=== PATIENT | female | born 1950 | race Caucasian/White ===

== ENCOUNTER 2016-04-22 16:34 | Emergency (ER) | payer BC ==
--- NOTE | 2016-04-22 17:07 | ED ---
General Adult HPI - General Chief complaint: Wound/Laceration Stated complaint: Hand Laceration Time Seen by Provider: 04/22/16 16:59 Source: patient, family, RN notes reviewed Mode of arrival: ambulatory Limitations: no limitations - History of Present Illness Initial comments: 65-year-old female presenting for left hand laceration. Patient states within the past hour she tripped and fell and landed on a plate which shattered under her hand. She sustained several lacerations to her left hand because of this. She also states that she fell on her right wrist during this and she is now having some pain in her right wrist. She states that her tetanus shot is up-to- date within the past 2 years. She denies any other injury. She denies any head injury. She does state that she takes Plavix, however her bleeding has resolved spontaneously. She denies any other blood thinners. She has no other complaints at this time. - Related Data Home Medications Medication Instructions Recorded Confirmed ALPRAZolam [Xanax] 0.125 mg PO DAILY PRN 04/22/16 04/22/16 Acetaminophen [Tylenol Arthritis] 650 mg PO BID 04/22/16 04/22/16 Aspirin 81 mg PO DAILY 04/22/16 04/22/16 Bisoprolol-Hctz 5-6.25 mg [Ziac 1 tab PO DAILY 04/22/16 04/22/16 5-6.25] Cholecalciferol [Vitamin D3] 1,000 unit PO DAILY 04/22/16 04/22/16 Clopidogrel [Plavix] 75 mg PO DAILY 04/22/16 04/22/16 Desloratadine [Clarinex] 5 mg PO DAILY 04/22/16 04/22/16 Gabapentin [Neurontin] 300 mg PO HS 04/22/16 04/22/16 Glimepiride [Amaryl] 4 mg PO AC-BRKFST 04/22/16 04/22/16 L.acidoph,Paracasei, B.lactis 1 cap PO DAILY 04/22/16 04/22/16 [Probiotic] Lovastatin [Mevacor] 40 mg PO HS 04/22/16 04/22/16 Omeprazole 20 mg PO DAILY 04/22/16 04/22/16 Soy Isofla/Blk Cohosh/Mag Bark 155 mg PO DAILY 04/22/16 04/22/16 [Estroven 155 mg Capsule] metFORMIN HCL 1,000 mg PO BID 04/22/16 04/22/16 Allergies Allergy/AdvReac Type Severity Reaction Status Date / Time latex Allergy Rash/Hives Verified 04/22/16 17:20 codeine AdvReac Agitation Verified 04/22/16 17:20 and slight swelling Review of Systems ROS Statement: Those systems with pertinent positive or pertinent negative responses have been documented in the HPI. ROS Other: All systems not noted in ROS Statement are negative. Past Medical History Past Medical History: No Reported History History of Any Multi-Drug Resistant Organisms: None Reported Past Surgical History: Section Past Psychological History: No Psychological Hx Reported Smoking Status: Never smoker Past Alcohol Use History: None Reported Past Drug Use History: None Reported General Exam - General Exam Comments Initial Comments: General: Awake and Alert. No acute distress. Does not appear acutely ill. Obese. Eyes: JOSE, EOM intact. No nystagmus. No scleral icterus. HENT: Atraumatic, normocephalic. Mucous membranes moist. Trachea midline. Neck: The neck is supple, there is no tenderness or JVD. Cardiovascular: Regular rate and rhythm. No murmur, rub, or gallop is appreciated. Distal pulses intact. Digits with brisk cap refill. Respiratory: Lungs are clear to auscultation bilaterally. No wheezes, rales, rhonchi. No respiratory distress. Gastrointestinal: Soft, Nontender. No rebound or guarding. Non-distended. No masses or organomegaly noted. No CVA tenderness. Musculoskeletal: No tenderness. Normal ROM. No gross deformity. No strength deficits. Neurological: A&Ox3. CN II-XII grossly intact, There are no obvious motor or sensory deficits. Coordination appears grossly intact. Speech is normal. Skin: Left hand with 2 4 cm vertical lacerations on the palmar aspect of the hand. Bleeding stopped spontaneously. Otherwise skin is warm and dry and no rashes or lesions are noted. Psychiatric: Cooperative, appropriate mood & affect, normal judgment. Limitations: no limitations Course Vital Signs 04/22/16 16:40 Temperature 97.6 F Pulse Rate 66 Respiratory 20 Rate Blood Pressure 184/86 O2 Sat by Pulse 96 Oximetry Procedures - Laceration Laceration #1 Consent Obtained: verbal consent Time Out Performed: Yes Indication: laceration Site: hand Size (cm): 4 Description: linear Depth: simple, single layer Anesthetic Used: lidocaine 1% Anesthesia Technique: local infiltration Amount (mls): 5 Pre-repair: irrigated extensively Type of Sutures: nylon Size of Sutures: 5-0 Number of Sutures: 8 Technique: simple, interrupted Patient Tolerated Procedure: well, no complications Laceration #2 Consent Obtained: verbal consent Time Out Performed: Yes Indication: laceration Site: hand Size (cm): 4 Description: linear Depth: simple, single layer Anesthetic Used: lidocaine 1% Amount (mls): 5 Pre-repair: irrigated extensively Type of Sutures: nylon Size of Sutures: 5-0 Number of Sutures: 9 Technique: simple, interrupted Patient Tolerated Procedure: well, no complications Medical Decision Making - Medical Decision Making 65-year-old female presenting for lacerations to the left hand after mechanical fall. She landed on a ceramic plate which broke. X-rays imaging was performed which shows no evidence of retained foreign body. She does state that her tetanus is up-to-date. She states she fell on her right wrist which is painful. X-ray imaging of this is without evidence of fracture. She does have full range of motion of this wrist. Sutures were placed to left palm in 2 separate 4 cm lacerations after extensive tap water rrigation and local anesthetic. There does not appear to be any deep tissue or tendon involvement. Lacerations were repaired without complication. Discussed laceration and wound care. Patient doesn't wedding ring on the left fourth digit, however there is no evidence of significant digital swelling at this time. There is not appear to be any laceration close to this area. She is unable to easily remove this at this time, however she is not normally able to easily remove her wedding ring. We discussed and elected not to remove the wedding ring at this time. Her finger appears well perfused and without evidence of ischemia at this time. Discussed concerning signs symptoms for immediate return to the ED. Discussed getting sutures out in about 7 days. Patient is agreeable with plan to discharge home. Disposition Clinical Impression: Laceration of left palm, Fall, Right wrist pain Disposition: HOME SELF-CARE Condition: Stable Instructions: Wrist Injury (ED), Care For Your Stitches (ED) Additional Instructions: Sutures may be removed in about 7 days. Referrals: Cole Andujar MD [Primary Care Provider] - 1-2 days Time of Disposition: 18:49
[2016-04-22] MEDS ORDERED: HYDROcodone/APAP 5-325MG 1 EACH TAB PO STA (17:10)
--- NOTE | 2016-04-22 17:52 | XR ---
EXAMINATION TYPE: XR hand complete LT DATE OF EXAM: 04/22/2016 5:31 PM COMPARISON: NONE HISTORY: Wrist pain TECHNIQUE: 3 views FINDINGS: I see no fracture nor dislocation. Metacarpals are intact. There are no erosions. IMPRESSION: No acute abnormality of the left hand.
--- NOTE | 2016-04-22 17:53 | XR ---
EXAMINATION TYPE: XR wrist complete RT DATE OF EXAM: 04/22/2016 5:31 PM COMPARISON: NONE HISTORY: Wrist pain and hand pain TECHNIQUE: 4 views FINDINGS: I see no fracture nor dislocation. Carpal bones are intact. There are no erosions. IMPRESSION: Negative right hand exam. No sign of a foreign body.
[2016-04-22 18:57] VITALS: BP 170/74; PULSE 61; RESP 18; TEMP 97.8
== END 2016-04-22 18:58 | disposition home or self-care (01) ==
LOC: EC 16:34
DX: S61.412A Laceration without foreign body of left hand, initial encounter (principal); M25.531 Pain in right wrist; W01.118A Fall on same level from slipping, tripping and stumbling with subsequent striking against other sharp object, initial encounter; Z79.02 Long term (current) use of antithrombotics/antiplatelets; Z79.899 Other long term (current) drug therapy; Z79.82 Long term (current) use of aspirin; Z91.040 Latex allergy status; Z88.5 Allergy status to narcotic agent; Z79.84 Long term (current) use of oral hypoglycemic drugs
CPT/HCPCS: 12004; 99283

== ENCOUNTER → 2021-09-03 | Outpatient (CLI) | payer MEDICARE ==
[2021-09-03 15:55] LABS: Basophils % (A) 1 %; Eosinophils # (A) 0.2 k/uL (0-0.7); Eosinophils % (A) 3 %; HCT 41.3 % (34.0-46.0); HGB 13.8 gm/dL (11.4-16.0); Lymphocytes # (A) 1.5 k/uL (1.0-4.8); Lymphocytes % (A) 22 %; MCH 29.9 pg (25.0-35.0); MCHC 33.4 g/dL (31.0-37.0); MCV 89.6 fL (80.0-100.0); Mean Platelet Volume 8.2; Monocytes # (A) 0.3 k/uL (0-1.0); Monocytes % (A) 5 %; Neutrophils # (A) 4.6 k/uL (1.3-7.7); Neutrophils % (A) 69 %; Platelet Count 161 k/uL (150-450); RBC 4.62 m/uL (3.80-5.40); RDW 12.8 % (11.5-15.5); WBC 6.7 k/uL (3.8-10.6)
[2021-09-03 16:06] LABS: Ionized Calcium 5.3 mg/dL (4.5-5.3)
[2021-09-03 23:37] LABS: Protein, Total 6.4 g/dL (6.2-8.2)
[2021-09-04 00:43] LABS: Calcium 10.5 mg/dL (8.7-10.3)
== END | disposition home or self-care (01) ==
LOC: LABWHC1 14:39
PROVIDERS: ATTEND Internal Medicine
DX: E83.52 Hypercalcemia (principal)
CPT/HCPCS: 36415; 82306; 82310; 82330; 82652; 83970; 84165; 85025

== ENCOUNTER → 2022-05-30 | Outpatient (CLI) | payer MEDICARE ==
[2022-05-30 13:57] LABS: Ionized Calcium 5.4 mg/dL (4.5-5.3)
[2022-05-30 14:24] LABS: ALT 18 U/L (4-34); AST 23 U/L (14-36); African American GFR (CKD) >90 (>60 ml/min/1.73 sqM); Albumin 4.2 g/dL (3.5-5.0); Albumin/Globulin Ratio 1.7; Alkaline Phosphatase 71 U/L (38-126); Anion Gap 8 mmol/L; Blood Urea Nitrogen 8 mg/dL (7-17); Calcium 10.1 mg/dL (8.4-10.2); Carbon Dioxide 31 mmol/L (22-30); Chloride 100 mmol/L (98-107); Globulin 2.5 g/dL; Glucose 175 mg/dL (74-99); Non-African American GFR(CKD) >90 (>60 ml/min/1.73 sqM); Potassium 3.9 mmol/L (3.5-5.1); Sodium 139 mmol/L (137-145); Total Bilirubin 0.6 mg/dL (0.2-1.3); Total Protein 6.7 g/dL (6.3-8.2)
[2022-05-30 21:23] LABS: Basophils # (A) 0.04 X 10*3/uL (0.00-0.10); Basophils % (A) 0.6 %; Eosinophils # (A) 0.18 X 10*3/uL (0.04-0.35); Eosinophils % (A) 2.6 %; HCT 43.9 % (37.2-46.3); HGB 14.2 g/dL (12.0-15.0); Immature Grans, Automated 0.3 %; Lymphocytes # (A) 1.82 X 10*3/uL (0.90-5.00); MCH 29.1 pg (27.0-32.0); MCHC 32.3 g/dL (32.0-37.0); Mean Platelet Volume 10.8 fL (9.5-12.2); Monocytes # (A) 0.47 X 10*3/uL (0.20-1.00); Monocytes % (A) 6.7 %; NRBC Per 100 WBC 0 /100 WBCS (0.0-0.0); Neutrophils # (A) 4.47 X 10*3/uL (1.80-7.70); Neutrophils % (A) 63.8 %; Platelet Count 168 X 10*3/uL (140-440); RBC 4.88 X 10*6/uL (4.10-5.20); RDW 12.3 % (11.5-14.5)
[2022-05-30 22:38] LABS: Chol/HDL Ratio 4.62 Ratio; LDL Cholesterol,Calculated 101.1 mg/dL (0.0-131.0)
== END | disposition home or self-care (01) ==
LOC: LABWHC1 12:21
PROVIDERS: ATTEND Internal Medicine
DX: E11.65 Type 2 diabetes mellitus with hyperglycemia (principal)
CPT/HCPCS: 36415; 80053; 80061; 82330; 82607; 82746; 83970; 84100; 84443; 85025

== ENCOUNTER 2023-08-16 21:08 | Emergency (ER) | payer MEDICARE ==
--- NOTE | 2023-08-16 22:20 | ED ---
Psych HPI - General Source: patient, EMS, RN notes reviewed Mode of arrival: EMS <Elvira Carnes - Last Filed: 08/16/23 22:19> <Thien Kaur - Last Filed: 08/17/23 06:52> - General Chief Complaint: Psychiatric Symptoms Stated Complaint: mental health Time Seen by Provider: 08/16/23 21:20 - History of Present Illness Initial Comments: Quick Note-this is a 72-year-old female presents emergency department via EMS from [facility] for chief complaint of suicidal ideation. It was reported that patient was messaging her family members stating that she has been having suicidal ideations. Currently patient is denying suicidal ideations or homicidal ideations. (Elvira Carnes) 72 female to the ER for evaluation of suicidal ideation under petition (Thien Kaur) - Related Data Home Medications Medication Instructions Recorded Confirmed ALPRAZolam [Xanax] 0.125 mg PO DAILY PRN 04/22/16 04/22/16 Acetaminophen [Tylenol Arthritis] 650 mg PO BID 04/22/16 04/22/16 Aspirin 81 mg PO DAILY 04/22/16 04/22/16 Bisoprolol-Hctz 5-6.25 mg [Ziac 1 tab PO DAILY 04/22/16 04/22/16 5-6.25] Cholecalciferol [Vitamin D3] 1,000 unit PO DAILY 04/22/16 04/22/16 Clopidogrel [Plavix] 75 mg PO DAILY 04/22/16 04/22/16 Desloratadine [Clarinex] 5 mg PO DAILY 04/22/16 04/22/16 Gabapentin [Neurontin] 300 mg PO HS 04/22/16 04/22/16 Glimepiride [Amaryl] 4 mg PO AC-BRKFST 04/22/16 04/22/16 L.acidoph,Paracasei, B.lactis 1 cap PO DAILY 04/22/16 04/22/16 [Probiotic] Lovastatin [Mevacor] 40 mg PO HS 04/22/16 04/22/16 Omeprazole 20 mg PO DAILY 04/22/16 04/22/16 Soy Isofla/Blk Cohosh/Mag Bark 155 mg PO DAILY 02/27/17 02/27/17 [Estroven 155 mg Capsule] metFORMIN HCL [Glucophage] 1,000 mg PO BID 04/22/16 04/22/16 Allergies Allergy/AdvReac Type Severity Reaction Status Date / Time latex Allergy Rash/Hives Verified 08/16/23 21:16 codeine AdvReac Agitation Verified 08/16/23 21:16 and slight swelling Review of Systems ROS Other: All systems not noted in ROS Statement are negative. <Elvira Carnes - Last Filed: 08/16/23 22:19> ROS Other: All systems not noted in ROS Statement are negative. <Thien Kaur - Last Filed: 08/17/23 06:52> ROS Statement: Those systems with pertinent positive or pertinent negative responses have been documented in the HPI. Past Medical History Past Medical History: Diabetes Mellitus History of Any Multi-Drug Resistant Organisms: None Reported Past Surgical History: Section Past Psychological History: No Psychological Hx Reported Smoking Status: Current every day smoker Past Alcohol Use History: None Reported Past Drug Use History: None Reported <Elvira Carnes - Last Filed: 08/16/23 22:19> General Exam Limitations: no limitations <Elvira Carnes - Last Filed: 08/16/23 22:19> - General Exam Comments Initial Comments: Visual Physical Exam Vital signs reviewed General: Well-appearing, nontoxic, no acute distress. Head: Normocephalic, atraumatic Eyes: PERRLA, EOMI ENT: Airway patent Chest: Nonlabored breathing Skin: No visual rash, normal skin tone Neuro: Alert and oriented 3 Musculoskeletal: No gross abnormalities (Elvira Carnes) Course <Thien Kaur - Last Filed: 08/17/23 06:52> Vital Signs 08/16/23 08/17/23 08/17/23 21:14 00:49 02:00 Temperature 97.7 F Pulse Rate 62 53 L 67 Respiratory 18 18 16 Rate Blood Pressure 141/71 133/68 148/84 O2 Sat by Pulse 99 97 94 L Oximetry - Reevaluation(s) Reevaluation #1: 08/17/23 03:52 Medical records reviewed Medically clear for psychiatric evaluation (Thien Kaur) Medical Decision Making <Elvira Carnes - Last Filed: 08/16/23 22:19> - Lab Data Result diagrams: 08/16/23 21:51 08/16/23 21:51 <Thien Kaur - Last Filed: 08/17/23 06:52> - Medical Decision Making I completed the quick note portion of this chart signed Elvira Carnes PA-C (Elvira Carnes) 72 female seen eval by psychiatry patient will be admitted for psychiatric evaluation and treatment geriatric psychiatry (Thien Kaur) - Lab Data Lab Results 08/16/23 08/16/23 08/16/23 Range/Units 21:51 21:51 21:51 WBC 8.0 (3.8-10.6) k/uL RBC 4.46 (3.80-5.40) m/uL Hgb 13.3 (11.4-16.0) gm/dL Hct 41.0 (34.0-46.0) % MCV 91.8 (80.0-100.0) fL MCH 29.9 (25.0-35.0) pg MCHC 32.6 (31.0-37.0) g/dL RDW 13.0 (11.5-15.5) % Plt Count 200 (150-450) k/uL MPV 8.5 Neutrophils % 56 % Lymphocytes % 33 % Monocytes % 5 % Eosinophils % 4 % Basophils % 0 % Neutrophils # 4.5 (1.3-7.7) k/uL Lymphocytes # 2.6 (1.0-4.8) k/uL Monocytes # 0.4 (0-1.0) k/uL Eosinophils # 0.3 (0-0.7) k/uL Basophils # 0.0 (0-0.2) k/uL Sodium 138 (137-145) mmol/L Potassium 4.2 (3.5-5.1) mmol/L Chloride 109 H (98-107) mmol/L Carbon Dioxide 21 L (22-30) mmol/L Anion Gap 8 mmol/L BUN 17 (7-17) mg/dL Creatinine 0.57 (0.52-1.04) mg/dL Est GFR (CKD-EPI)AfAm >90 (>60 ml/min/1.73 sqM) Est GFR (CKD-EPI)NonAf >90 (>60 ml/min/1.73 sqM) Glucose 184 H (74-99) mg/dL Calcium 10.5 H (8.4-10.2) mg/dL Phosphorus 3.4 (2.5-4.5) mg/dL Magnesium 1.8 (1.6-2.3) mg/dL Total Bilirubin 0.5 (0.2-1.3) mg/dL AST 30 (14-36) U/L ALT 30 (4-34) U/L Alkaline Phosphatase 116 (38-126) U/L Total Protein 6.4 (6.3-8.2) g/dL Albumin 4.2 (3.5-5.0) g/dL Urine Color Colorless Urine Appearance Cloudy H (Clear) Urine pH 5.5 (5.0-8.0) Ur Specific [place] 1.019 (1.001-1.035) Urine Protein Negative (Negative) Urine Glucose (UA) 1+ H (Negative) Urine Ketones Negative (Negative) Urine Blood Large H (Negative) Urine Nitrite Negative (Negative) Urine Bilirubin Negative (Negative) Urine Urobilinogen <2.0 (<2.0) mg/dL Ur Leukocyte Esterase Large H (Negative) Urine RBC 126 H (0-5) /hpf Urine WBC 131 H (0-5) /hpf Ur Squamous Epith Cells 28 H (0-4) /hpf Urine Bacteria Rare H (None) /hpf Hyaline Casts 1 (0-2) /lpf Urine Mucus Rare H (None) /hpf Urine Yeast (Budding) Few H (None) /hpf Salicylates <1.0 mg/dL Urine Opiates Screen Not Detected (NotDetected) Ur Oxycodone Screen Not Detected (NotDetected) Urine Methadone Screen Not Detected (NotDetected) Acetaminophen <10.0 ug/mL Ur Barbiturates Screen Not Detected (NotDetected) U Tricyclic Antidepress Detected H (NotDetected) Ur Phencyclidine Scrn Not Detected (NotDetected) Ur Amphetamines Screen Not Detected (NotDetected) U Methamphetamines Scrn Not Detected (NotDetected) U Benzodiazepines Scrn Not Detected (NotDetected) Urine Cocaine Screen Not Detected (NotDetected) U Marijuana (THC) Screen Not Detected (NotDetected) Serum Alcohol <10 mg/dL Influenza Type A (PCR) (Not Detectd) Influenza Type B (PCR) (Not Detectd) RSV (PCR) (Not Detectd) SARS-CoV-2 (PCR) (Not Detectd) 08/17/23 Range/Units 03:00 WBC (3.8-10.6) k/uL RBC (3.80-5.40) m/uL Hgb (11.4-16.0) gm/dL Hct (34.0-46.0) % MCV (80.0-100.0) fL MCH (25.0-35.0) pg MCHC (31.0-37.0) g/dL RDW (11.5-15.5) % Plt Count (150-450) k/uL MPV Neutrophils % % Lymphocytes % % Monocytes % % Eosinophils % % Basophils % % Neutrophils # (1.3-7.7) k/uL Lymphocytes # (1.0-4.8) k/uL Monocytes # (0-1.0) k/uL Eosinophils # (0-0.7) k/uL Basophils # (0-0.2) k/uL Sodium (137-145) mmol/L Potassium (3.5-5.1) mmol/L Chloride (98-107) mmol/L Carbon Dioxide (22-30) mmol/L Anion Gap mmol/L BUN (7-17) mg/dL Creatinine (0.52-1.04) mg/dL Est GFR (CKD-EPI)AfAm (>60 ml/min/1.73 sqM) Est GFR (CKD-EPI)NonAf (>60 ml/min/1.73 sqM) Glucose (74-99) mg/dL Calcium (8.4-10.2) mg/dL Phosphorus (2.5-4.5) mg/dL Magnesium (1.6-2.3) mg/dL Total Bilirubin (0.2-1.3) mg/dL AST (14-36) U/L ALT (4-34) U/L Alkaline Phosphatase (38-126) U/L Total Protein (6.3-8.2) g/dL Albumin (3.5-5.0) g/dL Urine Color Urine Appearance (Clear) Urine pH (5.0-8.0) Ur Specific [place] (1.001-1.035) Urine Protein (Negative) Urine Glucose (UA) (Negative) Urine Ketones (Negative) Urine Blood (Negative) Urine Nitrite (Negative) Urine Bilirubin (Negative) Urine Urobilinogen (<2.0) mg/dL Ur Leukocyte Esterase (Negative) Urine RBC (0-5) /hpf Urine WBC (0-5) /hpf Ur Squamous Epith Cells (0-4) /hpf Urine Bacteria (None) /hpf Hyaline Casts (0-2) /lpf Urine Mucus (None) /hpf Urine Yeast (Budding) (None) /hpf Salicylates mg/dL Urine Opiates Screen (NotDetected) Ur Oxycodone Screen (NotDetected) Urine Methadone Screen (NotDetected) Acetaminophen ug/mL Ur Barbiturates Screen (NotDetected) U Tricyclic Antidepress (NotDetected) Ur Phencyclidine Scrn (NotDetected) Ur Amphetamines Screen (NotDetected) U Methamphetamines Scrn (NotDetected) U Benzodiazepines Scrn (NotDetected) Urine Cocaine Screen (NotDetected) U Marijuana (THC) Screen (NotDetected) Serum Alcohol mg/dL Influenza Type A (PCR) Not Detected (Not Detectd) Influenza Type B (PCR) Not Detected (Not Detectd) RSV (PCR) Not Detected (Not Detectd) SARS-CoV-2 (PCR) Not Detected (Not Detectd) Disposition <Elvira Carnes - Last Filed: 08/16/23 22:19> Is patient prescribed a controlled substance at d/c from ED?: No <Thien Kaur - Last Filed: 08/17/23 06:52> Clinical Impression: Acute psychosis, Suicidal ideation, Depression Disposition: TRANSFER TO PSYCH HOSP/UNIT Condition: Fair Referrals: Bobby Michel DO [REFERRING] - 1-2 days
[2023-08-16 22:25] LABS: Basophils % (A) 0 %; Eosinophils # (A) 0.3 k/uL (0-0.7); Eosinophils % (A) 4 %; HGB 13.3 gm/dL (11.4-16.0); Lymphocytes # (A) 2.6 k/uL (1.0-4.8); Lymphocytes % (A) 33 %; MCH 29.9 pg (25.0-35.0); MCHC 32.6 g/dL (31.0-37.0); MCV 91.8 fL (80.0-100.0); Mean Platelet Volume 8.5; Monocytes # (A) 0.4 k/uL (0-1.0); Monocytes % (A) 5 %; Neutrophils # (A) 4.5 k/uL (1.3-7.7); Neutrophils % (A) 56 %; Platelet Count 200 k/uL (150-450); RBC 4.46 m/uL (3.80-5.40)
[2023-08-16 22:40] LABS: ALT 30 U/L (4-34); AST 30 U/L (14-36); Acetaminophen <10.0 ug/mL; African American GFR (CKD) >90 (>60 ml/min/1.73 sqM); Albumin 4.2 g/dL (3.5-5.0); Alcohol <10 mg/dL; Alkaline Phosphatase 116 U/L (38-126); Anion Gap 8 mmol/L; Blood Urea Nitrogen 17 mg/dL (7-17); Calcium 10.5 mg/dL (8.4-10.2); Carbon Dioxide 21 mmol/L (22-30); Chloride 109 mmol/L (98-107); Glucose 184 mg/dL (74-99); Magnesium 1.8 mg/dL (1.6-2.3); Non-African American GFR(CKD) >90 (>60 ml/min/1.73 sqM); Phosphorus 3.4 mg/dL (2.5-4.5); Potassium 4.2 mmol/L (3.5-5.1); Salicylate <1.0 mg/dL; Sodium 138 mmol/L (137-145); Total Bilirubin 0.5 mg/dL (0.2-1.3); Total Protein 6.4 g/dL (6.3-8.2)
[2023-08-16 23:31] LABS: Appearance,Urine Cloudy (Clear); Bacteria,Urine Rare /hpf; Bilirubin,Urine Negative (Negative); Blood,Urine Large (Negative); Budding Yeast,Urine Few /hpf; Color,Urine Colorless; Glucose,Urine (UA) 1+ (Negative); Hyaline Casts,Urine 1 /lpf (0-2); Ketones,Urine Negative (Negative); Leukocyte Esterase,Urine Large (Negative); Mucus,Urine Rare /hpf; Nitrite,Urine Negative (Negative); PH, Urine 5.5 (5.0-8.0); Protein,Urine Negative (Negative); RBC,Urine 126 /hpf (0-5); Specific Gravity,Urine 1.019 (1.001-1.035); Squamous Epithelial Cell,Urine 28 /hpf (0-4); Urobilinogen,Urine <2.0 mg/dL (<2.0); WBC,Urine 131 /hpf (0-5)
[2023-08-16 23:39] LABS: Amphetamine Screen,Urine Not Detected (NotDetected); Barbiturate Screen,Urine Not Detected (NotDetected); Benzodiazepines Screen,Urine Not Detected (NotDetected); Cocaine Screen,Urine Not Detected (NotDetected); Methadone Screen, Urine Not Detected (NotDetected); Opiate Screen,Urine Not Detected (NotDetected); Oxycodone Screen, Urine Not Detected (NotDetected); Phencyclidine Screen,Urine Not Detected (NotDetected); Tricyclic Antidepressant,Urine Detected (NotDetected); Urn Cannabinoid Scrn Not Detected (NotDetected)
[2023-08-17] MEDS: QUEtiapine 50 MG TAB PO STA (08:52)
[2023-08-17] MEDS: BISOPROLOL-HCTZ 5-6.25 MG 1 EACH TAB PO SCH (08:55)
[2023-08-17] MEDS: CHOLECALCIFEROL 25 MCG (1000 IU) TABLET PO SCH (08:59)
[2023-08-17] MEDS: LORATADINE 10 MG TAB PO SCH (09:00)
[2023-08-17] MEDS ORDERED: ALPRAZolam 0.25 MG TAB PO PRN (09:00)
[2023-08-17] MEDS: CLOPIDOGREL 75 MG TAB PO SCH (09:01)
[2023-08-17 09:22] VITALS: BP 121/58; PULSE 79; RESP 18; TEMP 98.1
[2023-08-17] MEDS: ACETAMINOPHEN TAB 325 MG TAB PO SCH (09:22)
[2023-08-17] MEDS: ASPIRIN 81 MG PO SCH (09:23)
[2023-08-17] MEDS: PANTOPRAZOLE 40 MG TABLET PO SCH (09:23)
[2023-08-17] MEDS: LACTOBACILLUS ACIDOPHILUS/PECT 1 EACH CAPSULE PO SCH (09:23)
[2023-08-17] MEDS: amLODIPine 10 MG TAB PO STA (09:24)
[2023-08-17] MEDS: METOPROLOL SUCCINATE (ER) 50 MG TAB.ER.24H PO STA (09:24)
[2023-08-17] MEDS ORDERED: ATORVASTATIN 10 MG TAB PO SCH (21:00)
[2023-08-17] MEDS ORDERED: GABAPENTIN 100 MG CAP PO SCH (21:00)
== END 2023-08-17 10:00 ==
LOC: SUPCPDRO 21:08 → EC 21:08 → EEVIPCON 21:08 → EC 08-17 10:00
DX: F29 Unspecified psychosis not due to a substance or known physiological condition (principal); F32.A Depression, unspecified; R45.851 Suicidal ideations; F17.200 Nicotine dependence, unspecified, uncomplicated; Z88.5 Allergy status to narcotic agent; Z91.040 Latex allergy status; Z11.52 Encounter for screening for COVID-19
CPT/HCPCS: 82075; 36415; 80053; 83735; 84100; 85025; 81001; 80306; 80143; 87636; 80179; 99285; G0480; 80320